=== PATIENT | male | born 1950 | race Caucasian/White ===

== ENCOUNTER 2018-02-02 02:24 | Emergency (ER) | payer MEDICARE ==
[2018-02-02] MEDS ORDERED: SODIUM CHLORIDE 0.9% 1,000 ML IV STA (03:20)
[2018-02-02] MEDS ORDERED: MORPHINE SULFATE 4 MG/ML SYRINGE IV STA (03:20)
[2018-02-02] MEDS ORDERED: ONDANSETRON 4 MG/2 ML VIAL IVP STA (03:20)
[2018-02-02 03:36] LABS: Basophils # (A) 0.1 k/uL (0-0.2); Basophils % (A) 1 %; Eosinophils # (A) 0.2 k/uL (0-0.7); Eosinophils % (A) 2 %; HCT 42.7 % (39.0-53.0); Lymphocytes # (A) 1.7 k/uL (1.0-4.8); Lymphocytes % (A) 14 %; MCH 28.6 pg (25.0-35.0); MCHC 32.7 g/dL (31.0-37.0); MCV 87.6 fL (80.0-100.0); Mean Platelet Volume 6.7; Monocytes # (A) 1.2 k/uL (0-1.0); Monocytes % (A) 10 %; Neutrophils # (A) 8.8 k/uL (1.3-7.7); Neutrophils % (A) 72 %; Platelet Count 308 k/uL (150-450); RBC 4.88 m/uL (4.30-5.90); RDW 12.7 % (11.5-15.5); WBC 12.2 k/uL (3.8-10.6)
[2018-02-02 03:51] LABS: C Reactive Protein 15.2 mg/L (<10.0); Calcium 9.5 mg/dL (8.4-10.2); Potassium 4.4 mmol/L (3.5-5.1); Total Bilirubin 0.6 mg/dL (0.2-1.3); Total Protein 7.2 g/dL (6.3-8.2)
[2018-02-02 03:53] LABS: Appearance,Urine Clear (Clear); Bilirubin,Urine Negative (Negative); Blood,Urine Negative (Negative); Color,Urine Yellow; Glucose,Urine (UA) Negative (Negative); Ketones,Urine Negative (Negative); Leukocyte Esterase,Urine Negative (Negative); Nitrite,Urine Negative (Negative); Protein,Urine Trace (Negative); Urobilinogen,Urine <2.0 mg/dL (<2.0)
--- NOTE | 2018-02-02 04:38 | XR ---
EXAM: XR Chest, 1 View CLINICAL HISTORY: ITS.REASON XR Reason: abdominal pain TECHNIQUE: Frontal view of the chest. COMPARISON: 08/14/2017 FINDINGS: Lungs: Chronic interstitial thickening. No evidence for airspace infiltrate. Pleural space: Unremarkable. No pneumothorax. Heart: Unremarkable. No cardiomegaly. Mediastinum: Unremarkable. Bones/joints: Unremarkable. IMPRESSION: No acute radiographic findings.
--- NOTE | 2018-02-02 04:42 | XR ---
EXAM: XR Abdomen, 2 Views CLINICAL HISTORY: ITS.REASON XR Reason: abdominal pain TECHNIQUE: Frontal view of the abdomen/pelvis with upright view of the abdomen. COMPARISON: No relevant prior studies available. FINDINGS: Intraperitoneal space: Symmetric high density within the pelvis likely related to seminal vesicle/vas deferens calcification. No free air. Gastrointestinal tract: Moderate stool burden within the colon. No evidence for significant small bowel dilation. Bones/joints: Unremarkable. Other findings: Linear opacities overlying the central lower pelvis likely postsurgical. IMPRESSION: 1. Moderate stool burden within the colon. Correlate for constipation. 2. Symmetric high density structures in the pelvis favoring calcification of the seminal vesicles/vas deferens.
--- NOTE | 2018-02-02 05:16 | ED ---
Abdominal Pain HPI - General Chief Complaint: Abdominal Pain Stated Complaint: ABD PAIN Time Seen by Provider: 02/02/18 03:14 Source: patient Mode of arrival: ambulatory Limitations: no limitations - History of Present Illness Initial Comments: 7 years old male complaining about the left lower quadrant pain ongoing for 2 weeks he has history of [place], cerebrovascular accident in atrial flutter hyperlipidemia and hypertension I said he has ongoing complaints with the constipation denies any history of diverticulitis he had a colonoscopy 2 years ago he had bleeding issues at that time he said colonoscopy was unremarkable. He has a history of constipation he has been trying some laxative without great deal of success. He denies any chest pain or shortness of breath no pleuritic chest pain - Related Data Home Medications Medication Instructions Recorded Confirmed Aspirin [Adult Low Dose Aspirin EC] 81 mg PO DAILY 08/14/17 08/14/17 Atorvastatin Calcium [Lipitor] 20 mg PO DAILY 08/14/17 08/14/17 Clopidogrel Bisulfate [Plavix] 75 mg PO DAILY 08/14/17 08/14/17 Folic Acid 0.8 mg PO DAILY 08/14/17 08/14/17 Metoprolol Succinate (ER) [Toprol 50 mg PO DAILY 08/14/17 08/14/17 XL] Montelukast Sodium [Singulair] 10 mg PO DAILY 08/14/17 08/14/17 Multivitamins, Thera [Multivitamin 1 tab PO DAILY 08/14/17 08/14/17 (formulary)] Tamsulosin [Flomax] 0.4 mg PO HS 08/14/17 08/14/17 Urinozinc 1 tab PO DAILY 08/14/17 08/14/17 Vit C/E/Zn/Coppr/Lutein/Zeaxan 1 cap PO DAILY 08/14/17 08/14/17 [Preservision Areds 2 Softgel] Vitamin B Complex 1 cap PO MOWEFR 08/14/17 08/14/17 Previous Rx's Medication Instructions Recorded Cefuroxime [Ceftin] 250 mg PO BID #10 tablet 08/17/17 HYDROmorphone [Dilaudid] 1 mg PO Q6HR PRN #12 tab 02/02/18 Allergies Allergy/AdvReac Type Severity Reaction Status Date / Time amiodarone Allergy Unknown Verified 02/02/18 02:37 Review of Systems ROS Statement: Those systems with pertinent positive or pertinent negative responses have been documented in the HPI. ROS Other: All systems not noted in ROS Statement are negative. Past Medical History Past Medical History: Atrial Flutter, CVA/TIA, Hyperlipidemia, Hypertension, Myocardial Infarction ([place]) Additional Past Medical History / Comment(s): Idiopathic peripheral neuropathy, BPH, obstructive uropathy and the patient has a John catheter in place, nephrolithiasis and left-sided kidney stone, atrial fibrillation with previous cardiac ablation 2, CVA that occurred following radiofrequency ablation of the atrial fibrillation, coronary artery disease with previous insertion of coronary stents, difficulty with mobility and gait, difficulty with memory, BPH. Last Myocardial Infarction Date:: 0000 History of Any Multi-Drug Resistant Organisms: ESBL Date of last positivie culture/infection: 08/14/17 MDRO Source:: urine kl,oxytoca Past Surgical History: Prostate Surgery Additional Past Surgical History / Comment(s): Cardiac catheterization and insertion of stent, cardiac ablation, surgery for kidney stone, orthopedic surgeries involving the right knee and hand Past Anesthesia/Blood Transfusion Reactions: No Reported Reaction Past Psychological History: No Psychological Hx Reported Smoking Status: Never smoker Past Alcohol Use History: None Reported Past Drug Use History: None Reported General Exam - General Exam Comments Initial Comments: General: The patient is awake and alert, in no distress, and does not appear acutely ill. Skin: Skin is warm and dry and no rashes or lesions are noted. Eye: Pupils are equal, round and reactive to light, extra-ocular movements are intact; there is normal conjunctiva bilaterally. Ears, nose, mouth and throat: There are moist mucous membranes and no oral lesions. Neck: The neck is supple, there is no tenderness or JVD. Cardiovascular: There is a regular rate and rhythm. No murmur, rub or gallop is appreciated. Respiratory: To auscultation bilateral, no wheezing no rhonchi no distress respiratory sepulveda noticed Gastrointestinal: Tender over the left lower quadrant area and the left upper quadrant area Back: There is no tenderness to palpation in the midline. There is no obvious deformity. Musculoskeletal: Normal ROM, no tenderness, There is no pedal edema. There is no calf tenderness or swelling. No cords were appreciated. Neurological: CN II-XII intact, Cranial nerves III through XII are intact. There are no obvious motor or sensory deficits. Coordination appears grossly intact. Speech is normal. Psychiatric: Cooperative, appropriate mood & affect, normal judgment. Limitations: no limitations Course Vital Signs 02/02/18 02/02/18 02/02/18 02:29 03:49 05:11 Temperature 100 F H Pulse Rate 98 85 77 Respiratory 20 18 18 Rate Blood Pressure 134/68 141/77 128/64 O2 Sat by Pulse 98 96 98 Oximetry 02/02/18 02/02/18 05:51 06:50 Temperature 97.8 F Pulse Rate 69 82 Respiratory 18 20 Rate Blood Pressure 104/58 114/63 O2 Sat by Pulse 99 97 Oximetry Patient is reassessed at term 5:15, white count is 12.2 creatinine is 1.3 troponin is unremarkable urinalysis is unremarkable chest x-ray and KUB are unremarkable is still having a pain on the left upper quadrant area I DL E he needs a CT of the abdomen with the IV contrast considering his kidney functions or his chronic renal insufficiency and will hold off the contrast and he was CT of the abdomen without contrast, and a CT of the abdomen is reviewed, consistent with the nephrolithiasis or pyelonephritis patient be given some morphine for milligram IV now with the Rocephin 2 g IV push, he be gone home on Cipro 5 mg twice daily for his hiatal, he does have a chronic complaints of constipation in the narcotics can aggravate the abdomen is any moment some Dilaudid for milligram every 8 - Reevaluation(s) Reevaluation #1: He is on antibiotics from mom his primary care physician for is for bladder infection that's why I'm not going to give him any new prescription he has seen urologist for kidney stones now he is "go back to his urologist for his kidney stones though there is no obstruction, he does have a constipation but he still needs the medication for his nephrolithiasis I gave him some Dilaudid for couple days worth and some lactulose 02/02/18 07:05 Medical Decision Making - Lab Data Result diagrams: 02/02/18 02:52 02/02/18 02:52 Lab Results 02/02/18 02/02/18 02/02/18 Range/Units 02:52 02:52 02:52 WBC 12.2 H (3.8-10.6) k/uL RBC 4.88 (4.30-5.90) m/uL Hgb 14.0 (13.0-17.5) gm/dL Hct 42.7 (39.0-53.0) % MCV 87.6 (80.0-100.0) fL MCH 28.6 (25.0-35.0) pg MCHC 32.7 (31.0-37.0) g/dL RDW 12.7 (11.5-15.5) % Plt Count 308 (150-450) k/uL Neutrophils % 72 % Lymphocytes % 14 % Monocytes % 10 % Eosinophils % 2 % Basophils % 1 % Neutrophils # 8.8 H (1.3-7.7) k/uL Lymphocytes # 1.7 (1.0-4.8) k/uL Monocytes # 1.2 H (0-1.0) k/uL Eosinophils # 0.2 (0-0.7) k/uL Basophils # 0.1 (0-0.2) k/uL Sodium 141 (137-145) mmol/L Potassium 4.4 (3.5-5.1) mmol/L Chloride 102 (98-107) mmol/L Carbon Dioxide 27 (22-30) mmol/L Anion Gap 12 mmol/L BUN 20 (9-20) mg/dL Creatinine 1.30 H (0.66-1.25) mg/dL Est GFR (CKD-EPI)AfAm 66 (>60 ml/min/1.73 sqM) Est GFR (CKD-EPI)NonAf 57 (>60 ml/min/1.73 sqM) Glucose 109 H (74-99) mg/dL Plasma Lactic Acid Pedro (0.7-2.0) mmol/L Calcium 9.5 (8.4-10.2) mg/dL Total Bilirubin 0.6 (0.2-1.3) mg/dL AST 28 (17-59) U/L ALT 32 (21-72) U/L Alkaline Phosphatase 96 (38-126) U/L Troponin I (0.000-0.034) ng/mL C-Reactive Protein 15.2 H (<10.0) mg/L Total Protein 7.2 (6.3-8.2) g/dL Albumin 4.0 (3.5-5.0) g/dL Amylase 56 (30-110) U/L Lipase 88 (23-300) U/L Urine Color Yellow Urine Appearance Clear (Clear) Urine pH 7.0 (5.0-8.0) Ur Specific [place] 1.010 (1.001-1.035) Urine Protein Trace H (Negative) Urine Glucose (UA) Negative (Negative) Urine Ketones Negative (Negative) Urine Blood Negative (Negative) Urine Nitrite Negative (Negative) Urine Bilirubin Negative (Negative) Urine Urobilinogen <2.0 (<2.0) mg/dL Ur Leukocyte Esterase Negative (Negative) 02/02/18 02/02/18 Range/Units 02:52 05:04 WBC (3.8-10.6) k/uL RBC (4.30-5.90) m/uL Hgb (13.0-17.5) gm/dL Hct (39.0-53.0) % MCV (80.0-100.0) fL MCH (25.0-35.0) pg MCHC (31.0-37.0) g/dL RDW (11.5-15.5) % Plt Count (150-450) k/uL Neutrophils % % Lymphocytes % % Monocytes % % Eosinophils % % Basophils % % Neutrophils # (1.3-7.7) k/uL Lymphocytes # (1.0-4.8) k/uL Monocytes # (0-1.0) k/uL Eosinophils # (0-0.7) k/uL Basophils # (0-0.2) k/uL Sodium (137-145) mmol/L Potassium (3.5-5.1) mmol/L Chloride (98-107) mmol/L Carbon Dioxide (22-30) mmol/L Anion Gap mmol/L BUN (9-20) mg/dL Creatinine (0.66-1.25) mg/dL Est GFR (CKD-EPI)AfAm (>60 ml/min/1.73 sqM) Est GFR (CKD-EPI)NonAf (>60 ml/min/1.73 sqM) Glucose (74-99) mg/dL Plasma Lactic Acid Pedro 1.1 (0.7-2.0) mmol/L Calcium (8.4-10.2) mg/dL Total Bilirubin (0.2-1.3) mg/dL AST (17-59) U/L ALT (21-72) U/L Alkaline Phosphatase (38-126) U/L Troponin I <0.012 (0.000-0.034) ng/mL C-Reactive Protein (<10.0) mg/L Total Protein (6.3-8.2) g/dL Albumin (3.5-5.0) g/dL Amylase (30-110) U/L Lipase (23-300) U/L Urine Color Urine Appearance (Clear) Urine pH (5.0-8.0) Ur Specific [place] (1.001-1.035) Urine Protein (Negative) Urine Glucose (UA) (Negative) Urine Ketones (Negative) Urine Blood (Negative) Urine Nitrite (Negative) Urine Bilirubin (Negative) Urine Urobilinogen (<2.0) mg/dL Ur Leukocyte Esterase (Negative) Disposition Clinical Impression: Pyelonephritis, Nephrolithiasis Disposition: HOME SELF-CARE Condition: Good Instructions: Flank Pain (ED) Prescriptions: HYDROmorphone [Dilaudid] 1 mg PO Q6HR PRN #12 tab PRN Reason: Pain Referrals: Carlita Benjamin MD [Primary Care Provider] - 1-2 days
--- NOTE | 2018-02-02 06:37 | CT ---
EXAM: CT Abdomen and Pelvis Without Intravenous Contrast CLINICAL HISTORY: ITS.REASON CT Reason: Pain TECHNIQUE: Axial computed tomography images of the abdomen and pelvis without intravenous contrast. CTDI is 17.9 mGy and DLP is 1046 mGy-cm. This CT exam was performed using one or more of the following dose reduction techniques: automated exposure control, adjustment of the mA and/or kV according to patient size, and/or use of iterative reconstruction technique. Coronal and sagittal reformatted images were created and reviewed. COMPARISON: No relevant prior studies available. FINDINGS: Lower thorax: Lower lobe atelectasis. Atherosclerosis and multivessel coronary artery calcifications. ABDOMEN: Liver: Unremarkable. Gallbladder and bile ducts: Unremarkable. No calcified stones. No ductal dilation. Pancreas: Unremarkable. No ductal dilation. Spleen: Unremarkable. No splenomegaly. Adrenals: Unremarkable. No mass. Kidneys and ureters: Nonobstructing 2 mm stones in the left kidney lower pole. Asymmetric perinephric stranding, worse in the left which could represent a component of edema. No evidence for ureteral stone. Stomach and bowel: Diverticulosis of the colon. No evidence for acute diverticulitis area A few scattered fluid levels in the small bowel though no evidence for significant dilation or obstruction. Appendix: No findings to suggest acute appendicitis. PELVIS: Bladder: Urinary bladder wall thickening. Diverticulum noted posterior laterally on the left. No stones. Reproductive: The lobe hypertrophy of the prostate. Prominent seminal vesicle and vas deferens calcification. ABDOMEN and PELVIS: Intraperitoneal space: Unremarkable. No free air. No significant fluid collection. Bones/joints: Degenerative joint changes involving the hips and sacroiliac joints. No acute fracture. No dislocation. Soft tissues: Unremarkable. Vasculature: See above. Lymph nodes: Unremarkable. No enlarged lymph nodes. IMPRESSION: 1. Nonobstructing left nephrolithiasis. There is asymmetric stranding and likely edema associated with the left kidney which may represent recently passed stone or inflammation. Correlate for pyelonephritis. There is also urinary bladder wall thickening which could be related to cystitis or possibly prostate hypertrophy. 2. Diverticulosis of the colon is present, though I see no evidence to suggest acute diverticulitis at this time. 3. Other nonacute findings as discussed above.
[2018-02-02] MEDS ORDERED: MORPHINE SULFATE 4 MG/ML SYRINGE IVP STA ×2 (06:50→06:54)
[2018-02-02 06:51] VITALS: BP 114/63; PULSE 82; RESP 20
[2018-02-02] MEDS ORDERED: cefTRIAXone IN SWFI 1,000 MG/10 ML SYRINGE IVP STA (06:55)
[2018-02-02 07:21] VITALS: TEMP 98.5
== END 2018-02-02 07:20 | disposition home or self-care (01) ==
LOC: EC 02:24
DX: N20.0 Calculus of kidney (principal); I48.92 Unspecified atrial flutter; E78.5 Hyperlipidemia, unspecified; I10 Essential (primary) hypertension; I25.2 Old myocardial infarction; N40.0 Benign prostatic hyperplasia without lower urinary tract symptoms; I48.91 Unspecified atrial fibrillation; I25.10 Atherosclerotic heart disease of native coronary artery without angina pectoris; Z86.73 Personal history of transient ischemic attack (TIA), and cerebral infarction without residual deficits; Z95.5 Presence of coronary angioplasty implant and graft; Z79.82 Long term (current) use of aspirin; Z79.02 Long term (current) use of antithrombotics/antiplatelets; Z79.899 Other long term (current) drug therapy; Z88.8 Allergy status to other drugs, medicaments and biological substances
CPT/HCPCS: 36415; 80053; 82150; 83605; 83690; 84484; 85025; 86140; 81003; 71045; 74019; 74176; 99284; 96374; 96375 ×2; 96376; 96361; J2270; J2405; J0696

== ENCOUNTER → 2018-04-14 | Outpatient (CLI) | payer MEDICARE ==
[2018-04-14 12:28] LABS: HCT 43.2 % (39.0-53.0); HGB 14.4 gm/dL (13.0-17.5); MCHC 33.4 g/dL (31.0-37.0); MCV 89.8 fL (80.0-100.0); Mean Platelet Volume 6.2; Platelet Count 302 k/uL (150-450); RBC 4.81 m/uL (4.30-5.90); RDW 12.7 % (11.5-15.5); WBC 7.4 k/uL (3.8-10.6)
[2018-04-14 12:43] LABS: Bilirubin, Delta 0.3 mg/dL (0.0-0.2); Bilirubin,Unconjugated 0.4 mg/dL (0.0-1.1); C Reactive Protein 24.2 mg/L (<10.0); Total Bilirubin 0.7 mg/dL (0.2-1.3)
[2018-04-14 14:02] LABS: Erythrocyte Sedimentation Rate 18 mm/hr (0-15)
== END | disposition home or self-care (01) ==
LOC: LABWHC1 11:55
PROVIDERS: ATTEND Internal Medicine Gastroenterology
DX: R10.9 Unspecified abdominal pain (principal)
CPT/HCPCS: 36415; 82248; 82565; 84075; 84450; 84460; 84520; 85027; 85652; 86140; 86301

== ENCOUNTER 2019-02-16 21:27 | Emergency (ER) | payer MEDICARE ==
[2019-02-16 21:45] VITALS: TEMP 98.3
[2019-02-16] MEDS ORDERED: SODIUM CHLORIDE 0.9% 1,000 ML IV STA (22:11)
[2019-02-16] MEDS ORDERED: ASPIRIN 81 MG PO STA (22:11)
--- NOTE | 2019-02-16 22:40 | ED ---
Chest Pain HPI - General Chief Complaint: Chest Pain Stated Complaint: hypoglycemia Time Seen by Provider: 02/16/19 22:08 Source: patient Mode of arrival: ambulatory Limitations: no limitations - History of Present Illness Initial Comments: Chief is a 68-year-old gentleman with history of coronary artery disease and atrial fibrillation status post 2 ablations currently on Lopressor, Plavix and aspirin. Patient reports that last week his metoprolol prescription ran out, he contacted the pharmacy for refill but was advised that his prescription was ex pired he had to contact his cardiology office. He did and they called in a prescription for him, without checking he began taking the prescription and after 2 days began to feel somewhat fatigued and lightheaded, he checked his pulse and noted that it was in the 40s, patient then checked his prescription and noted that it was 100 mg metoprolol. Patient reports that he was prescribed this in the past which caused bradycardia and he had subsequently been prescribed 50 mg. Patient took 00 mg doses on Thursday and Thursday before deciding to begin cutting them in half and taking only 50mg Thursday night and none tonight. He reports that despite taking 50 for the past 2 days he continues to feel lightheaded with any activity and when he checks his pulse with his 's pulse oximeter he notes that he remains bradycardic with a heart rate in the 40s. Last night when going to bed he felt some heaviness and discomfort in his chest and some difficulty with breathing. However he was able to wake up this morning and started on new LED lighting in his home workshop. Patient reports that throughout the day he was up and down on ladders all day however he continues to feel lightheaded so he thought he would come in for evaluation. - Related Data Home Medications Medication Instructions Recorded Confirmed Aspirin [Adult Low Dose Aspirin EC] 81 mg PO DAILY 08/14/17 02/16/19 Atorvastatin Calcium [Lipitor] 20 mg PO DAILY 08/14/17 02/16/19 Clopidogrel Bisulfate [Plavix] 75 mg PO DAILY 08/14/17 02/16/19 Folic Acid 0.8 mg PO DAILY 08/14/17 02/16/19 Metoprolol Succinate (ER) [Toprol 50 mg PO DAILY 08/14/17 02/16/19 XL] Multivitamins, Thera [Multivitamin 1 tab PO DAILY 08/14/17 02/16/19 (formulary)] Tamsulosin [Flomax] 0.4 mg PO HS 08/14/17 02/16/19 Vit C/E/Zn/Coppr/Lutein/Zeaxan 1 cap PO DAILY 08/14/17 02/16/19 [Preservision Areds 2 Softgel] Vitamin B Complex 1 cap PO DAILY 08/14/17 02/16/19 Allergies Allergy/AdvReac Type Severity Reaction Status Date / Time amiodarone Allergy Anaphylaxis Verified 02/16/19 22:58 Review of Systems ROS Statement: Those systems with pertinent positive or pertinent negative responses have been documented in the HPI. ROS Other: All systems not noted in ROS Statement are negative. EKG Findings - EKG Comments: EKG Findings:: EKG was obtained at 10:05 PM, rate is approximately 80, rhythm is sinus with PVCs in a pattern of bigeminy. There is normal axis there are normal intervals, VT 152, QRS 70, QTC 397 there are no acute ST elevations or depressions there is no evidence of acute ischemia or infarction. Past Medical History Past Medical History: Atrial Flutter, CVA/TIA, Hyperlipidemia, Hypertension, Myocardial Infarction ([place]) Additional Past Medical History / Comment(s): Idiopathic peripheral neuropathy, BPH, obstructive uropathy and the patient has a John catheter in place, nephrolithiasis and left-sided kidney stone, atrial fibrillation with previous cardiac ablation 2, CVA that occurred following radiofrequency ablation of the atrial fibrillation, coronary artery disease with previous insertion of coronary stents, difficulty with mobility and gait, difficulty with memory, BPH. Last Myocardial Infarction Date:: 0000 History of Any Multi-Drug Resistant Organisms: ESBL Date of last positivie culture/infection: 08/14/17 MDRO Source:: urine kl,oxytoca Past Surgical History: Prostate Surgery Additional Past Surgical History / Comment(s): Cardiac catheterization and insertion of stent, cardiac ablation, surgery for kidney stone, orthopedic surgeries involving the right knee and hand Past Anesthesia/Blood Transfusion Reactions: No Reported Reaction Past Psychological History: No Psychological Hx Reported Smoking Status: Never smoker Past Alcohol Use History: None Reported Past Drug Use History: None Reported General Exam - General Exam Comments Initial Comments: Physical Exam GENERAL: Patient is well-developed and well-nourished. Patient is nontoxic and well- hydrated and is in no distress. HENT: Normocephalic, Atraumatic. EYES: PERRL, EOMI PULMONARY: Unlabored respirations. No audible rales rhonchi or wheezing was noted. CARDIOVASCULAR: Bradycardia, regular Warm and well perfused extremities ABDOMEN: Soft and nontender with normal bowel sounds. SKIN: Skin is clear with no lesions or rashes and otherwise unremarkable. : Deferred NEUROLOGIC: Patient is alert and oriented x3. Moving all extremities spontaneously MUSCULOSKELETAL: Normal extremities with adequate strength and full range of motion. No lower extremity swelling or edema. No calf tenderness. PSYCHIATRIC: Normal psychiatric evaluation. Limitations: no limitations Limitations: no limitations Course Vital Signs 02/16/19 02/16/19 21:40 23:11 Temperature 98.3 F Pulse Rate 42 L 71 Respiratory 20 16 Rate Blood Pressure 128/69 161/60 O2 Sat by Pulse 99 98 Oximetry Chest Pain MDM - MDM She was seen and evaluated history is obtained from the patient 68-year-old gentleman with a history of atrial flutter status post ablation currently on Toprol 50 mg daily, patient was inadvertently prescribed 100 mg daily and took this for 2 days. It has been 48 hours since his last 100 mg dose and 24 hours since his last 50 mg dose He is now experiencing system bradycardia which prompted him to come to the ER for evaluation EKG reveals sinus rhythm with a rate of 40 frequent PVCs in a rhythm of bigeminy. When compared to EKG obtained in 2017 the rhythm is very similar Patient underwent a full cardiac workup including EKG, chest x-ray, labs and troponins Patient's labs are within normal limits kidney function continues to worsen but only minimally, electrolytes are within normal limits, there is no signs of anemia Patient was reevaluated and results were discussed with the patient, at this time patient is in normal sinus rhythm the rate in the 70s and a heart rate in the 70s there is no more bigeminy x-ray and a repeat EKG was obtained at 2339, rate is 73 rhythm is sinus is normal axis, normal intervals, VT 154, QRS 70, QTC 416 there is no acute ST elevations or depressions no evidence of acute ischemia or infarction Effort to keep the patient in observation for continuous cardiac monitoring and evaluation by cardiology in the morning. However patient feels much better at this time is been 48 hours since his last double dose of Lopressor he would like to go home to sleep at home he will contact his hoop driving machine operator helper Dr. Calero from [facility] cardiology in the morning. She has pertaining care were answered return parameters were discussed the patient was discharged home in stable condition. Disposition Clinical Impression: Bradycardia with 41-50 beats per minute, Medication reaction Disposition: HOME SELF-CARE Instructions (If sedation given, give patient instructions): Bradycardia (ED) Additional Instructions: Do not take any metoprolol tonight, contact her hoop driving machine operator helper first thing in the morning to discuss further care Is patient prescribed a controlled substance at d/c from ED?: No Referrals: Eugenia Greenwood MD [Primary Care Provider] - 1-2 days Pina Renae MD [REFERRING] - 1-2 days Time of Disposition: 23:43
[2019-02-16 22:47] LABS: Basophils # (A) 0.1 k/uL (0-0.2); Basophils % (A) 1 %; Eosinophils # (A) 0.3 k/uL (0-0.7); Eosinophils % (A) 4 %; HCT 43.6 % (39.0-53.0); HGB 14.3 gm/dL (13.0-17.5); Lymphocytes # (A) 3.2 k/uL (1.0-4.8); Lymphocytes % (A) 38 %; MCH 29.7 pg (25.0-35.0); MCHC 32.7 g/dL (31.0-37.0); MCV 90.9 fL (80.0-100.0); Mean Platelet Volume 6.8; Monocytes # (A) 0.6 k/uL (0-1.0); Monocytes % (A) 7 %; Neutrophils # (A) 4.1 k/uL (1.3-7.7); Neutrophils % (A) 48 %; Platelet Count 247 k/uL (150-450); RDW 13.4 % (11.5-15.5); WBC 8.5 k/uL (3.8-10.6)
[2019-02-16 22:53] LABS: INR 0.9 (<1.2); Partial Thromboplastin Time 24.5 sec (22.0-30.0); Prothrombin Time 10.2 sec (9.0-12.0)
[2019-02-16 22:59] LABS: Albumin 3.9 g/dL (3.5-5.0); Calcium 9.5 mg/dL (8.4-10.2); Magnesium 2.2 mg/dL (1.6-2.3); Potassium 4.7 mmol/L (3.5-5.1); Total Bilirubin 0.4 mg/dL (0.2-1.3); Total Protein 6.7 g/dL (6.3-8.2)
[2019-02-16 23:12] VITALS: BP 161/60; PULSE 71; RESP 16
--- NOTE | 2019-02-16 23:18 | XR ---
EXAM: XR Chest, 2 Views CLINICAL HISTORY: Chest pain TECHNIQUE: Frontal and lateral views of the chest. COMPARISON: Chest x-ray dated 08/14/2017 FINDINGS: Lungs: Prominence of the interstitium which may represent interstitial edema versus an inflammatory or infectious process. Pleural space: Unremarkable. No pneumothorax. Heart: Unremarkable. No cardiomegaly. Mediastinum: Unremarkable. Bones/joints: Unremarkable. IMPRESSION: Prominence of the interstitium which may represent interstitial edema versus an inflammatory or infectious process.
== END 2019-02-17 00:42 | disposition home or self-care (01) ==
LOC: EC 21:27
DX: T44.7X5A Adverse effect of beta-adrenoreceptor antagonists, initial encounter (principal); R00.1 Bradycardia, unspecified; R07.9 Chest pain, unspecified; R53.83 Other fatigue; I48.92 Unspecified atrial flutter; E78.5 Hyperlipidemia, unspecified; I10 Essential (primary) hypertension; I25.2 Old myocardial infarction; I48.91 Unspecified atrial fibrillation; N40.0 Benign prostatic hyperplasia without lower urinary tract symptoms; I25.10 Atherosclerotic heart disease of native coronary artery without angina pectoris; Z86.73 Personal history of transient ischemic attack (TIA), and cerebral infarction without residual deficits; Z79.82 Long term (current) use of aspirin; Z79.01 Long term (current) use of anticoagulants; Z79.899 Other long term (current) drug therapy; Z88.8 Allergy status to other drugs, medicaments and biological substances; Z95.5 Presence of coronary angioplasty implant and graft
CPT/HCPCS: 36415; 71046; 80053; 83735; 83880; 84484; 85025; 85610; 85730; 93005; 96360; 96361; 99285

== ENCOUNTER 2024-03-09 18:27 | Emergency (ER) | payer MEDICARE ==
[2024-03-09] MEDS: PROPARACAINE 0.5% OPHTH DROPS 15 ML BTL BOTH EYES STA (19:25)
[2024-03-09 19:59] VITALS: BP 155/82; PULSE 67; RESP 16; TEMP 98.6
--- NOTE | 2024-03-09 20:03 | ED ---
Eye Problem HPI - General Chief complaint: Eye Problems Stated complaint: Eye complications Time Seen by Provider: 03/09/24 19:06 Source: patient Mode of arrival: ambulatory Limitations: no limitations - History of Present Illness Initial comments: 73-year-old male presenting with chief complaint of bilateral eye irritation. Patient receives Beovu intraocular injections at the [facility] in [facility] for macular degeneration. This is his third time receiving the injection. He states that each time a few hours later he starts having itching watering and irritation to bilateral eyes. He is currently experiencing symptoms in addition to light sensitivity. For all other ophthalmology concerns he follows with Dr. Quevedo here in [place]. No injury to the eye. - Related Data Home Medications Medication Instructions Recorded Confirmed Aspirin [Adult Low Dose Aspirin EC] 81 mg PO DAILY 08/14/17 02/16/19 Atorvastatin Calcium [Lipitor] 20 mg PO DAILY 08/14/17 02/16/19 Clopidogrel Bisulfate [Plavix] 75 mg PO DAILY 08/14/17 02/16/19 Folic Acid 0.8 mg PO DAILY 08/14/17 02/16/19 Metoprolol Succinate (ER) [Toprol 50 mg PO DAILY 08/14/17 02/16/19 XL] Multivitamins, Thera [Multivitamin 1 tab PO DAILY 08/14/17 02/16/19 (formulary)] Tamsulosin [Flomax] 0.4 mg PO HS 08/14/17 02/16/19 Vit C/E/Zn/Coppr/Lutein/Zeaxan 1 cap PO DAILY 08/14/17 02/16/19 [Preservision Areds 2 Softgel] Vitamin B Complex 1 cap PO DAILY 08/14/17 02/16/19 Allergies Allergy/AdvReac Type Severity Reaction Status Date / Time amiodarone Allergy Anaphylaxis Verified 02/16/19 22:58 Review of Systems ROS Statement: Those systems with pertinent positive or pertinent negative responses have been documented in the HPI. ROS Other: All systems not noted in ROS Statement are negative. Past Medical History Past Medical History: Atrial Flutter, CVA/TIA, Hyperlipidemia, Hypertension, Myocardial Infarction (PR) Additional Past Medical History / Comment(s): Idiopathic peripheral neuropathy, BPH, obstructive uropathy and the patient has a John catheter in place, nephrolithiasis and left-sided kidney stone, atrial fibrillation with previous cardiac ablation 2, CVA that occurred following radiofrequency ablation of the atrial fibrillation, coronary artery disease with previous insertion of coronary stents, difficulty with mobility and gait, difficulty with memory, BPH. Last Myocardial Infarction Date:: 0000 History of Any Multi-Drug Resistant Organisms: ESBL Date of last positivie culture/infection: 08/14/17 MDRO Source:: urine kl,oxytoca Past Surgical History: Prostate Surgery Additional Past Surgical History / Comment(s): Cardiac catheterization and insertion of stent, cardiac ablation, surgery for kidney stone, orthopedic surgeries involving the right knee and hand Past Anesthesia/Blood Transfusion Reactions: No Reported Reaction Past Psychological History: No Psychological Hx Reported Past Alcohol Use History: None Reported Past Drug Use History: None Reported General Exam Limitations: no limitations General appearance: alert, in no apparent distress Head exam: Present: atraumatic, normocephalic Eye exam: Present: other (Upon initial examination the patient is closing his eyes and I am unable to examine the eyes. After proparacaine patient's symptoms are alleviated, I do note some scleral injection bilaterally. EOMI and PERRLA.) Expanded Visual acuity (R) = 20/: 10 Visual acuity (L) = 20/: 20 Neck exam: Present: normal inspection. Absent: meningismus Respiratory exam: Absent: respiratory distress Cardiovascular Exam: Present: regular rate Neurological exam: Present: alert, oriented X3 Psychiatric exam: Present: normal affect, normal mood Skin exam: Present: warm, dry Course Vital Signs 03/09/24 19:00 Temperature 98.6 F Pulse Rate 67 Respiratory 16 Rate Blood Pressure 155/82 O2 Sat by Pulse 97 Oximetry Medical Decision Making - Medical Decision Making Was pt. sent in by a medical professional or institution (, PA, [employer] FINISHER, urgent care, hospital, or [place] health [place] facility...) When possible be specific @ -No Did you speak to anyone other than the patient for history (EMS, parent, family, police, friend...)? What history was obtained from this source @ -No Did you review nursing and triage notes (agree or disagree)? Why? @ -I reviewed and agree with nursing and triage notes Were old charts reviewed (outside hosp., previous admission, EMS record, old EKG, old radiological studies, urgent care reports/EKG's, [place] health [place] facility records)? Report findings @ -No old charts were reviewed Differential Diagnosis (chest pain, altered mental status, abdominal pain women, abdominal pain men, vaginal bleeding, weakness, fever, dyspnea, syncope, headache, dizziness, GI bleed, back pain, seizure, CVA, palpatations, mental health, musculoskeletal)? @ -Differential includes allergic reaction, foreign body, corneal abrasion, corneal ulcer, conjunctivitis, acute angle-closure glaucoma, this is not an all- inclusive list EKG interpreted by me (3pts min.). @ -As above X-rays interpreted by me (1pt min.). @ -None done CT interpreted by me (1pt min.). @ -None done U/S interpreted by me (1pt. min.). @ -None done What testing was considered but not performed or refused? (CT, X-rays, U/S, labs)? Why? @ -None What meds were considered but not given or refused? Why? @ -None Did you discuss the management of the patient with other professionals (professionals i.e. , PA, [employer] FINISH[employer], lab, RT, psych nurse, social science teacher, hub cutter apprentice, teacher, licensed loan officer assistant, watch caser)? Give summary @ -No Was smoking cessation discussed for >3mins.? @ -No Was critical care preformed (if so, how long)? @ -No Were there social determinants of health that impacted care today? How? (Homelessness, low income, unemployed, alcoholism, drug addiction, transportation, low edu. Level, literacy, decrease access to med. care, care home, rehab)? @ -No Was there de-escalation of care discussed even if they declined (Discuss DNR or withdrawal of care, Hospice)? DNR status @ -No What co-morbidities impacted this encounter? (DM, HTN, Smoking, COPD, CAD, Cancer, CVA, ARF, Chemo, Hep., AIDS, mental health diagnosis, sleep apnea, morbid obesity)? @ -None Was patient admitted / discharged? Hospital course, mention meds given and route, prescriptions, significant lab abnormalities, going to OR and other pertinent info. @ -73-year-old male presenting with chief complaint of bilateral eye irritation. Happened a few hours after receiving intraocular injections, states that this has happened the last 3 times he has received these injections. On initial evaluation the patient is unable to open his eyes due to sensitivity. After instilling proparacaine eyedrops he reports alleviation of his symptoms. At that time I am able to measure the pressures which are 10 on the right and 20 on the left. Patient was having worse symptoms on the left side. He does have some blurry vision at this time, however he states that this feels consistent with the regular blurry vision he was told to expect after receiving these eyedr ops. Patient did not drive himself here and will not be driving himself home. His symptoms have significantly improved. Patient will call the office in the morning for follow-up. Discharged home. Follow-up with PCP. Report back to ER with any new or worsening symptoms. Discussed return parameters and answered all questions. Patient conveyed verbal understanding and agreed to the plan. I discussed this case in detail with my attending Dr. Clifton Undiagnosed new problem with uncertain prognosis? @ -No Drug Therapy requiring intensive monitoring for toxicity (Heparin, Nitro, Insulin, Cardizem)? @ -No Were any procedures done? @ -No Diagnosis/symptom? @ -Eye irritation Acute, or Chronic, or Acute on Chronic? @ -Acute Uncomplicated (without systemic symptoms) or Complicated (systemic symptoms)? @ -Uncomplicated Side effects of treatment? @ -No Exacerbation, Progression, or Severe Exacerbation? @ -No Poses a threat to life or bodily function? How? (Chest pain, USA, PR, pneumonia, PE, COPD, DKA, ARF, appy, cholecystitis, CVA, Diverticulitis, Homicidal, Suicidal, threat to staff... and all critical care pts) @ -Low likelihood Disposition Clinical Impression: Eye irritation Disposition: HOME SELF-CARE Condition: Good Instructions (If sedation given, give patient instructions): Eye Pain (ED) Additional Instructions: Follow-up with your test architect, call the office in the morning. Report back to ER with any new or worsening symptoms. Is patient prescribed a controlled substance at d/c from ED?: No Referrals: None,Stated [Primary Care Provider] - 1-2 days David Quevedo DO [Doctor of Osteopathic Medicine] - 1-2 days Time of Disposition: 20:03
== END 2024-03-09 20:14 | disposition home or self-care (01) ==
LOC: EC 18:27
DX: H57.89 Other specified disorders of eye and adnexa (principal); Z88.8 Allergy status to other drugs, medicaments and biological substances
CPT/HCPCS: 99283

== ENCOUNTER → 2024-05-05 | Outpatient (CLI) | payer MEDICARE ==
[2024-05-05 16:20] LABS: C Reactive Protein <0.30 mg/dL (0.00-0.80); Creatine Kinase 109 U/L (35-257); T4, Free (Free Thyroxine) 0.99 ng/dL (0.80-1.80)
[2024-05-05 17:37] LABS: Protein, Total 6.8 g/dL (6.2-8.2)
[2024-05-05 20:54] LABS: HIV 2 AB Non-Reactive (Non-Reactive); HIV AB P24 Non-Reactive (Non-Reactive); HIV P24 AG Non-Reactive (Non-Reactive)
[2024-05-06 18:43] LABS: Albumin 4.07 g/dL (3.80-4.90); Gamma Globulin 0.76 g/dL (0.70-1.50)
== END | disposition home or self-care (01) ==
LOC: LABWHC1 10:53
PROVIDERS: ATTEND Psychiatry & Neurology Neurology
DX: G62.9 Polyneuropathy, unspecified (principal)
CPT/HCPCS: 36415; 82550; 82607; 82747; 83036; 84165; 84207; 84439; 84443; 85652; 86038; 86140; 86334; 86618; 87390

== ENCOUNTER → 2024-05-07 | Outpatient (CLI) | payer MEDICARE ==
--- NOTE | 2024-05-08 09:08 | MR ---
EXAMINATION TYPE: MR brain and iac wo/w con DATE OF EXAM: 05/07/2024 11:03 AM CLINICAL INDICATION:Male, 73 years old with history of R41.3 OTHER AMNESIA R42 DIZZY GIDDY; PHH, Acou stic neuroma, imbalance, memory loss, dizziness. COMPARISON: None TECHNIQUE: Multi planar, multi sequence imaging was performed through the brain. Specialized thin s equences were obtained through the internal auditory canals. Pre-and post gadolinium sequences were obtained. MR contrast: IV Contrast: 9 cc Gadavist FINDINGS: Prominent right basal ganglia perivascular space versus remote injury. The leal-white junctions, lucy tricular system, and cisterns appear unremarkable. Scattered foci of high T2 signal intensity are se en within the periventricular white matter. Midline structures show no abnormality. Diffusion-weighte d imaging shows no evidence of restricted diffusion. The susceptibility weighted images do not reveal any evidence for micro-hemorrhage. The bone marrow signal is within normal limits. Paranasal sinuses and mastoid air cells: Mild scattered paranasal sinus disease. Visualized orbits: Orbital contents are intact. After administration of gadolinium, no abnormal enhancement is seen. The internal auditory canal sequences demonstrate no significant irregularity. The 7th cranial nerve s, 8 cranial nerves, and cerebellar pontine angles appear unremarkable. After the administration erick olinium, no abnormal enhancement is seen within the internal auditory canals. Vascular loop: None. IMPRESSION: 1. No evidence of intracranial mass nor acute/subacute CVA. 2. No evidence of internal auditory canal abnormality. 3. Nonspecific white matter changes, likely secondary to small vessel ischemic disease.
== END | disposition home or self-care (01) ==
LOC: RADMRIMAIN 10:01
PROVIDERS: ATTEND Psychiatry & Neurology Neurology
DX: R90.82 White matter disease, unspecified (principal); R41.3 Other amnesia; R42 Dizziness and giddiness; R26.89 Other abnormalities of gait and mobility
CPT/HCPCS: 70553; A9585

== ENCOUNTER → 2024-11-24 | Outpatient (CLI) | payer MEDICARE ==
--- NOTE | 2024-11-24 14:06 | US ---
EXAMINATION TYPE: US venous doppler duplex LE BI DATE OF EXAM: 11/24/2024 1:53 PM COMPARISON: NONE CLINICAL INDICATION: Male, 74 years old with history of I82.402 ACUTE EMBOLISM AND THROMBOSIS; , Pain TECHNIQUE: The lower extremity deep venous system is examined utilizing real time linear array sonog gatito with graded compression, color doppler sonography, and spectral doppler. SIDE PERFORMED: Bilateral FINDINGS: VESSELS IMAGED: Common Femoral Vein Deep Femoral Vein Greater Saphenous Vein * Femoral Vein Popliteal Vein Small Saphenous Vein * Proximal Calf Veins (* superficial vessels) Right Leg: Negative for DVT, Color Doppler imaging shows patency of the vessels. Spectral waveforms are within normal limits. Left Leg: Negative for DVT, Color Doppler imaging shows patency of the vessels. Spectral waveforms a re within normal limits. IMPRESSION: No ultrasound evidence for deep venous thrombosis. [facility], , 11/24/2024 2:04 PM
== END | disposition home or self-care (01) ==
LOC: RADUSWWP 13:09
PROVIDERS: ATTEND Orthopaedic Surgery
DX: I82.403 Acute embolism and thrombosis of unspecified deep veins of lower extremity, bilateral (principal)
CPT/HCPCS: 93970

== ENCOUNTER → 2024-11-30 | Outpatient (CLI) | payer MEDICARE ==
--- NOTE | 2024-11-30 14:55 | CT ---
CT left knee, TRICIA protocol. HISTORY: Knee pain COMPARISON: None TECHNIQUE: Multiple axial images are obtained through the lower extremities without use of IV contras t material. The exam was performed according to the TRICIA protocol FINDINGS: There is moderate narrowing, mild hypertrophic spurring and moderate subchondral sclerosis and cyst f ormation in the medial compartment knee consistent with moderate osteoarthritis. The lateral joint sp london is well preserved but there is chondrocalcinosis. There is no significant narrowing or subchondra l changes in the patellofemoral compartment. There is no acute fracture or dislocation. The hips are normal and symmetric bilaterally without fracture, dislocation or arthritic change. The ankles are normal and symmetrical without osteoarthritic change, fracture, dislocation or focal i ntraosseous abnormality. IMPRESSION: 1. Moderate osteoarthritis of the medial compartment knee. 2. Chondrocalcinosis in the lateral compartment which is otherwise fairly well preserved. 3. No significant degenerative changes of the patellofemoral compartment. 4. Unremarkable hips and ankles. [facility], , 11/30/2024 2:52 PM
== END | disposition home or self-care (01) ==
LOC: RADCTMAIN 13:19
PROVIDERS: ATTEND Orthopaedic Surgery
DX: M17.12 Unilateral primary osteoarthritis, left knee (principal); M11.262 Other chondrocalcinosis, left knee

== ENCOUNTER → 2024-12-26 | Outpatient (CLI) | payer MEDICARE ==
[2024-12-26 12:28] LABS: INR 1.2 (<1.2); Partial Thromboplastin Time 27.2 sec (22.0-30.0); Prothrombin Time 12.5 sec (10.0-12.5)
[2024-12-26 16:57] LABS: HGB 14.6 g/dL (13.0-17.0); MCH 29.9 pg (27.0-32.0); MCHC 33.2 g/dL (32.0-37.0); Mean Platelet Volume 10.1 FL (9.5-12.2); NRBC Per 100 WBC 0 X 10*3/uL (0.00-0.01); Platelet Count 242 X 10*3/uL (140-440); RBC 4.89 X 10*6/uL (4.40-5.60); RDW 13.2 % (11.5-14.5); WBC 6.75 X 10*3/uL (4.50-10.00)
[2024-12-26 20:14] LABS: ALT 42 U/L (10-49); AST 31 U/L (14-35); Albumin 4.1 g/dL (3.8-4.9); Albumin/Globulin Ratio 1.71 Ratio (1.60-3.17); Alkaline Phosphatase 111 U/L (41-126); BUN/Creat Ratio 14.75 Ratio (12.00-20.00); Blood Urea Nitrogen 17.7 mg/dL (9.0-27.0); Calcium 9.5 mg/dL (8.7-10.3); Carbon Dioxide 23.1 mmol/L (21.6-31.8); Chloride 107 mmol/L (96-109); Globulin 2.4 g/dL (1.6-3.3); Glucose 86 mg/dL (70-110); Potassium 4.5 mmol/L (3.5-5.5); Sodium 143 mmol/L (135-145); Total Bilirubin 0.4 mg/dL (0.3-1.2); Total Protein 6.5 g/dL (6.2-8.2)
== END | disposition home or self-care (01) ==
LOC: LABPAT 10:37
PROVIDERS: ATTEND Orthopaedic Surgery
DX: Z01.812 Encounter for preprocedural laboratory examination (principal); M19.91 Primary osteoarthritis, unspecified site; Z22.322 Carrier or suspected carrier of Methicillin resistant Staphylococcus aureus
CPT/HCPCS: 80053; 83036; 85027; 85610; 85730

== ENCOUNTER → 2025-01-26 | Outpatient (CLI) | payer MEDICARE ==
--- NOTE | 2025-01-26 15:09 | US ---
EXAMINATION TYPE: US venous doppler duplex LE DATE OF EXAM: 01/26/2025 3:02 PM COMPARISON: Left lower extremity venous ultrasound 01/12/2025, bilateral lower extremity venous ultras ound 11/24/2024 CLINICAL INDICATION: Male, 74 years old with history of I80.9 M79.662 Z86.718 Z96.652 LEFT LEG PAIN; Left knee replacement Jan 04. Swelling. Patient states having lump posterior calf. On Solo [place] TECHNIQUE: The lower extremity deep venous system is examined utilizing real time linear array sonog gatito with graded compression, color doppler sonography, and spectral doppler. SIDE PERFORMED: Left FINDINGS: VESSELS IMAGED: Common Femoral Vein Deep Femoral Vein Greater Saphenous Vein *- Surgically absent per patient Femoral Vein Popliteal Vein Small Saphenous Vein * Proximal Calf Veins (* superficial vessels) Left Leg: Negative for DVT. Positive for SVT at area of concern posterior calf demonstrate thrombus without compressibility, Color Doppler imaging shows patency of the vessels. Spectral waveforms are within normal limits. IMPRESSION: 1. No evidence of deep vein thrombosis of the left lower extremity. 2. Positive superficial venous thrombosis within the posterior calf. [facility], , 01/26/2025 3:07 PM
== END | disposition home or self-care (01) ==
LOC: RADUSWWP 14:33
PROVIDERS: ATTEND Orthopaedic Surgery
DX: I82.812 Embolism and thrombosis of superficial veins of left lower extremity (principal); M79.662 Pain in left lower leg; Z86.718 Personal history of other venous thrombosis and embolism; Z96.652 Presence of left artificial knee joint